=== PATIENT | female | born 1995 | race African-American/Black ===

== ENCOUNTER 2024-08-29 09:04 | Emergency (ER) | payer OTHER ==
[2024-08-29 09:50] VITALS: BP 148/88; PULSE 91; RESP 16; TEMP 98.3; BMI 38.9
[2024-08-29] MEDS: ACETAMINOPHEN 325 MG TABLET (FP) PO ONE (09:50)
[2024-08-29] MEDS ORDERED: ACETAMINOPHEN 325 MG TABLET (FP) ONE (09:50)
== END 2024-08-29 11:54 | disposition home or self-care (01) ==
LOC: JER 09:04
DX: R55 Syncope and collapse (principal); M54.6 Pain in thoracic spine; R51.9 Headache, unspecified; M79.652 Pain in left thigh; R00.0 Tachycardia, unspecified; R03.0 Elevated blood-pressure reading, without diagnosis of hypertension; W01.198A Fall on same level from slipping, tripping and stumbling with subsequent striking against other object, initial encounter
CPT/HCPCS: 70450-TC; 72070-TC-FY; 72170-TC-FY; 73552-TC-LT-FY; 82962; 84703; 93005; 93010; 99285-25